=== PATIENT | male | born 2000 | race Caucasian/White ===

== ENCOUNTER 2020-11-04 13:41 | Emergency (ER) | payer MEDICAID ==
[~2020-11-04] VITALS: Ht 165.1 cm; Wt 45.4 kg
[2020-11-04] MEDS ORDERED: SEROQUEL300 MG PO (13:50)
[2020-11-04] MEDS ORDERED: LEXAPRO 10 MG T10 M2 PO (13:50)
[2020-11-04] MEDS ORDERED: NAPROSYN500 MG PO (14:14)
[2020-11-04 14:38] VITALS: BP 116/65
== END 2020-11-04 14:41 | disposition home or self-care (01) ==
LOC: M.ERS 13:41
DX: M54.5 Low back pain (principal); F32.9 Major depressive disorder, single episode, unspecified; G89.29 Other chronic pain; Z96.22 Myringotomy tube(s) status; Z79.899 Other long term (current) drug therapy